=== PATIENT | female | born 1965 | race Caucasian/White ===

== ENCOUNTER → 2022-05-05 14:04 | Outpatient (CLI) | payer BC, SELFPAY ==
--- NOTE | ~2022-05-05 | US_ITS ---
US soft tissue head and neck 05/05/2022 14:28 Indication: Supraclavicular fossa fullness. Procedure: High-resolution ultrasound of the neck and supraclavicular fossa Comparison: No prior studies for comparison. Findings: There are bilateral cervical lymph nodes, largest on the left measuring 1.5 cm. Largest on the right measures 1.3 cm, all retaining normal fatty hilum. No definite abnormality is identified in the supraclavicular fossa. Impression: 1: Bilateral cervical lymph nodes, likely reactive. No definite abnormality of the supraclavicular fo ssa. Consider correlation with contrast-enhanced CT. Reviewed, dictated and finalized at location A. CAL TECH Impression: 1: Bilateral cervical lymph nodes, likely reactive. No definite abnormality of the supraclavicular fossa. Consider correlation with contrast-enhanced CT.
== END ==
DX: C50.111 Malignant neoplasm of central portion of right female breast (principal); Z17.0 Estrogen receptor positive status [ER+]; R59.0 Localized enlarged lymph nodes
CPT/HCPCS: 76536

== ENCOUNTER 2023-10-30 09:48 | Emergency (ER) | payer BC, SELFPAY ==
--- NOTE | ~2023-10-30 | XR_ITS ---
Clinical Indication: Pain PA and lateral views of the chest: Comparison: None Findings: There are small bilateral pleural effusions. There is hazy and interstitial disease the lizbet g bases, left worse than right.. Cardiomediastinal silhouette is within normal limits. Bones and sof t tissues are unremarkable. Impression: Probable mixed bibasilar alveolar and interstitial pulmonary edema. Correlate for chronic interstitia l disease or less likely pneumonia. Small bilateral pleural effusions. Reviewed, dictated and finalized at location . Impression: Probable mixed bibasilar alveolar and interstitial pulmonary edema. Correlate f or chronic interstitial disease or less likely pneumonia. Small bilateral pleural effusions.
[2023-10-30 09:52] VITALS: BP 138/91; PULSE 58; RESP 18; TEMP 36.7; O2SAT 96
[2023-10-30 11:55] LABS: Basophils Absolute Auto 0.1 K/mm3 (0.0-0.1); Basophils Percent Auto 0.8 % (0.2-1.2); Eosinophils Absolute Auto 0.2 K/mm3 (0-0.3); Eosinophils Percent Auto 2.7 % (0-4.4); Hematocrit 37.1 % (37.0-47.0); Hemoglobin 12.2 g/dL (12.0-15.0); Immature Granulocyte Absolute 0.04 K/mm3 (0.00-0.031); Immature Granulocyte Percent A 0.6 % (0-0.5); Lymphocytes Absolute Auto 1.89 K/mm3 (0.9-3.2); Lymphocytes Percent Auto 28.7 % (18.3-44.2); Mean Corpuscular HGB Conc 32.9 g/dl (32-36); Mean Corpuscular Hemoglobin 30.3 pg (26-34); Mean Corpuscular Volume 92.3 fl (80-100); Mean Platelet Volume 9.6 fl (7.4-10.4); Monocytes Absolute Auto 0.4 K/mm3 (0.1-0.6); Monocytes Percent Auto 6.4 % (2.6-8.5); Neutrophils Percent Auto 60.8 % (45.5-73.1); Platelet Count Result 342 k/mm3 (150-375); Red Blood Count 4.02 M/mm3 (4.2-5.4); Red Cell Distribution Width 13.2 % (11.5-14.5); White Blood Count 6.6 K/mm3 (4.5-10.0)
[2023-10-30 12:18] LABS: Appearance Urine Clear (Clear); Bacteria Urine None Seen /hpf; Bilirubin Urine Negative (Negative); Blood Urine Negative (Negative); Color Urine Yellow (Yellow); Glucose Urine UA Negative (Negative); Ketones Urine Negative (Negative); Leukocyte Esterase Ur Trace LEU/UL (Negative); Need Manual Microscopic Reviewed; Nitrate Urine Negative (Negative); Non Pathogenic Casts 0-2; Protein Urine Negative (Negative); RBC Urine 0-2 /hpf (0-2); Squamous Epithelial Cell Urine None Seen /hpf (Few); Urobilinogen Urine 0.2 mg/dL (<2.0); WBC Urine 0-5 /hpf (0-3); pH Urine 7.5 (5.0-9.0)
[2023-10-30 12:21] LABS: Add Urine Microscopic? YES; Specific Grav Ur 1.004 (1.001-1.035)
--- NOTE | 2023-10-30 12:47 | ED.ABDPAIN ---
HPI - Abdominal Pain General Chief Complaint: Abdominal Pain Stated Complaint: abdominal spasms, being treated for pneumonia Time Seen by Provider: 10/30/23 11:54 History of Present Illness HPI narrative: 58-year-old female presenting to the emergency department for evaluation for lower rib pain bilaterally. Patient was diagnosed with pneumonia a few weeks ago and had been started on a Zithromax in. Patient did not improve with this and was ultimately started on cefuroxime. Patient did have outpatient CTA that showed no evidence of pulmonary embolism. Patient states that she feels her cough is improving but does have bilateral upper abdominal pain that is worsened when lying flat. At time of evaluation patient denies any complaints. Related Data Allergies Allergy/AdvReac Type Severity Reaction Status Date / Time amoxicillin [From Augmentin] Allergy Mild Nausea Verified 10/30/23 11:50 clavulanic acid Allergy Mild Nausea Verified 10/30/23 11:50 [From Augmentin] Review of Systems Review of Systems: All systems reviewed & are unremarkable except as noted in HPI and below PMFSH Past Medical History Medical History BMI 24.0-24.9, adult BMI 25.0-25.9,adult Breast cancer Surgical History Surgical History H/O bilateral mastectomy Family History Family History Mother Hypertension CHF (congestive heart failure) Father Malignant neoplasm of prostate Sibling No problems noted. Other Diabetes mellitus Family history of lung cancer Family history of malignant neoplasm of bone Social History Social History Smoking status: Never smoker Second hand tobacco smoke exposure: Yes Alcohol intake: current Substance use: never Substance use type: does not use Do You Feel Safe in your Home?: Yes Lack of Transportation: No Lack of Food: Never True Current Housing: I Have Housing Concerned About Future Housing: No Difficulty Paying Gas/Electric Bills: No Difficulty Paying for Meds: No Currently Unemployed: No Education: High School Diploma/GED Difficulty w/ Childcare or Family Care: No Living arrangements: with family Occupation/Education: occupation 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 HEAD: normocephalic, atraumatic. EYES: PERRLA/EOMI, conjunctivae clear. NOSE: Normal no drainage EARS:TMS clear with good light reflex. THROAT: Pharynx clear, no exudate. NECK: Supple. No adenopathy, no masses. RESPIRATORY: Airway patent, respirations nonlabored. Clear to auscultation bilaterally, no rales, rhonchi, wheezing. CARDIOVASCULAR: Regular rate and rhythm without murmurs rubs or gallops. ABDOMINAL: Epigastric tenderness to palpation MUSCULOSKELETAL: Moves all extremities. Strength/ROM intact, No edema, No calf tenderness. NEURO: Alert. Cranial nerves II through XII intact. SKIN: Warm, dry. Normal Color Course Vital Signs Vital signs: Vital Signs Temperature 98.1 F 10/30/23 09:52 Pulse Rate 58 L 10/30/23 09:52 Respiratory Rate 18 10/30/23 09:52 Blood Pressure 138/91 H 10/30/23 09:52 Pulse Oximetry 96 10/30/23 09:52 Oxygen Delivery Room Air 10/30/23 09:52 Temperature 98.1 F 10/30/23 09:52 Pulse Rate 62 10/30/23 13:48 Respiratory Rate 16 10/30/23 13:48 Blood Pressure 130/74 10/30/23 13:48 Pulse Oximetry 98 10/30/23 13:48 Oxygen Delivery Room Air 10/30/23 09:52 MDM - Abdominal Pain MDM Narrative Medical decision making narrative: 58-year-old female present to the emergency department for evaluation of lower rib/
[2023-10-30] MEDS: BELLADONNA ALK/PHENOB ELIX 10 ML, MAG HYDROX/ALUMINUM HYD/SIMETH 30 ML, LIDOCAINE HCL 2... PO (12:53)
[2023-10-30 13:05] LABS: Alanine Aminotransferase 30 U/L (6-35); Alkaline Phosphatase 80 U/L (38-126); Anion Gap 5 mmol/L (4-12); Aspartate Amino Transferase 33 U/L (14-36); Bilirubin,Total 0.7 mg/dL (0.2-1.3); Blood Urea Nitrogen 10 mg/dL (7-17); Carbon Dioxide 24 mmol/L (22-30); Chloride 108 mmol/L (98-107); Estimated CRCL calculation 74 ml/min; Estimated Glomerular Filt Rate > 60; Glucose 91 mg/dL (65-110); Lipase 38 U/L (23-300); Potassium 4.2 mmol/L (3.4-5.0); Sodium 137 mmol/L (137-145)
[2023-10-30 13:48] VITALS: BP 130/74; PULSE 62; RESP 16; O2SAT 98
== END 2023-10-30 13:48 | disposition home or self-care (01) ==
PROVIDERS: Physician Assistant; Emergency Provider Emergency Medicine; PCP Family Medicine
DX: R07.81 Pleurodynia (principal); Z85.3 Personal history of malignant neoplasm of breast
CPT/HCPCS: 36415; 71046; 80053; 81001; 83690; 85025; 99283; A9270

== ENCOUNTER 2023-11-16 13:42 | Outpatient (CLI) | payer BC, SELFPAY ==
--- NOTE | ~2023-11-16 | XR_ITS ---
EXAMINATION: XR chest 2V Exam Date/Time: 11/16/2023 13:50 CDT HISTORY: J90 - Pleural effusion, not elsewhere classified Comparison: 10/30/2023. RESULT: Lines, tubes, and devices: None. Lungs and pleura: Decreasing bibasilar airspace disease. Persistent mild bilateral costophrenic angl e blunting, greater on the right. Cardiomediastinal silhouette: Stable. Other: No acute osseous or upper abdominal finding. IMPRESSION: Improving basilar aeration. Similar small bilateral pleural effusions. Reviewed, dictated and finalized at location K.
== END 2023-11-16 13:43 | disposition home or self-care (01) ==
LOC: ANHIMG 13:43
PROVIDERS: PCP Family Medicine; Visit Provider Physician Assistant Medical
DX: J90 Pleural effusion, not elsewhere classified (principal); R91.8 Other nonspecific abnormal finding of lung field
CPT/HCPCS: 71046